=== PATIENT | male | born 1965 | race Caucasian/White ===

== ENCOUNTER 2021-09-29 12:52 | Outpatient (REF) | payer BC, SELFPAY ==
[2021-09-30 09:09] LABS: Anion Gap 9.6 mmol/L (3-11); BUN 14 mg/dL (7-18); CO2 25.4 mmol/L (21.0-32.0); Calcium 9.2 mg/dL (8.5-10.1); Chloride 105 mmol/L (98-107); Glucose 96 mg/dL (74-106); Potassium 4.6 mmol/L (3.5-5.1); Sodium 140 mmol/L (136-145)
== END 2021-09-29 12:53 | disposition home or self-care (01) ==
LOC: NCHCN 12:52
PROVIDERS: PCP Specialist/Technologist Athletic Trainer; Visit Provider Nurse Practitioner Family
DX: I10 Essential (primary) hypertension (principal)
CPT/HCPCS: 80048

== ENCOUNTER 2022-05-03 15:24 | Outpatient (REF) | payer BC, SELFPAY ==
[2022-05-03 15:28] LABS: Anion Gap 12.9 mmol/L (3-11); BUN 21 mg/dL (7-18); CO2 27.1 mmol/L (21.0-32.0); CREATININE 1.2 mg/dL (0.70-1.30); Calcium 8.9 mg/dL (8.5-10.1); Calculated LDL 100 mg/dL (<100); Chloride 97 mmol/L (98-107); Cholesterol 170 mg/dL (<200); Glucose 120 mg/dL (74-106); HDL Cholesterol 55 mg/dL (40-60); Potassium 3.1 mmol/L (3.5-5.1); Sodium 137 mmol/L (136-145); Triglyceride 77 mg/dL (<150)
== END 2022-05-03 15:25 | disposition home or self-care (01) ==
LOC: NCHCN 15:24
PROVIDERS: PCP Specialist/Technologist Athletic Trainer; Visit Provider Nurse Practitioner Family
DX: Z00.00 Encounter for general adult medical examination without abnormal findings (principal); I10 Essential (primary) hypertension
CPT/HCPCS: 80048; 80061

== ENCOUNTER 2022-05-31 15:55 | Outpatient (REF) | payer BC, SELFPAY ==
[2022-05-31 15:45] LABS: Anion Gap 11.2 mmol/L (3-11); BUN 20 mg/dL (7-18); CO2 29.8 mmol/L (21.0-32.0); Calcium 8.9 mg/dL (8.5-10.1); Chloride 97 mmol/L (98-107); Glucose 101 mg/dL (74-106); Potassium 3.2 mmol/L (3.5-5.1); Sodium 138 mmol/L (136-145)
== END 2022-05-31 15:56 | disposition home or self-care (01) ==
LOC: NCHCN 15:55
PROVIDERS: PCP Specialist/Technologist Athletic Trainer; Visit Provider Nurse Practitioner Family
DX: I10 Essential (primary) hypertension (principal)
CPT/HCPCS: 80048

== ENCOUNTER 2022-06-30 08:58 | Outpatient (REF) | payer BC, SELFPAY ==
[2022-06-30 16:19] LABS: Anion Gap 10.1 mmol/L (3-11); BUN 15 mg/dL (7-18); CO2 27.9 mmol/L (21.0-32.0); Calcium 8.6 mg/dL (8.5-10.1); Chloride 100 mmol/L (98-107); Glucose 104 mg/dL (74-106); Potassium 3.9 mmol/L (3.5-5.1); Sodium 138 mmol/L (136-145)
== END 2022-06-30 08:59 | disposition home or self-care (01) ==
LOC: NCHCN 08:58
PROVIDERS: PCP Specialist/Technologist Athletic Trainer; Visit Provider Nurse Practitioner Family
DX: I10 Essential (primary) hypertension (principal); E87.6 Hypokalemia
CPT/HCPCS: 80048

== ENCOUNTER 2022-09-22 14:39 | Outpatient (REF) | payer BC, SELFPAY ==
[2022-09-22 16:10] LABS: Anion Gap 7.1 mmol/L (3-11); BUN 17 mg/dL (7-18); CO2 29.9 mmol/L (21.0-32.0); Calcium 9.8 mg/dL (8.5-10.1); Chloride 100 mmol/L (98-107); Estimated GFR 88.88 (mL/min/1.73m2); Glucose 91 mg/dL (74-106); Potassium 3.6 mmol/L (3.5-5.1); Sodium 137 mmol/L (136-145)
== END 2022-09-22 14:40 | disposition home or self-care (01) ==
LOC: NCHCN 14:39
PROVIDERS: PCP Specialist/Technologist Athletic Trainer; Visit Provider Nurse Practitioner Family
DX: I10 Essential (primary) hypertension (principal); E87.6 Hypokalemia
CPT/HCPCS: 80048

== ENCOUNTER 2023-04-06 12:57 | Outpatient (REF) | payer BC, SELFPAY ==
[2023-04-06 16:11] LABS: ALT 44 U/L (16-63); AST 34 U/L (15-37); Albumin 4.1 g/dL (3.4-5.0); Alkaline Phosphatase 57 U/L (46-116); Anion Gap 8.9 mmol/L (3-11); BUN 13 mg/dL (7-18); CO2 29.1 mmol/L (21.0-32.0); Calcium 9.1 mg/dL (8.5-10.1); Chloride 99 mmol/L (98-107); Estimated GFR 88.88 (mL/min/1.73m2); Glucose 101 mg/dL (74-106); Potassium 3.5 mmol/L (3.5-5.1); Sodium 137 mmol/L (136-145); Total Protein 8.1 g/dL (6.4-8.2)
== END 2023-04-06 12:58 | disposition home or self-care (01) ==
LOC: NCHCN 12:57
PROVIDERS: PCP Specialist/Technologist Athletic Trainer; Visit Provider Nurse Practitioner Family
DX: I10 Essential (primary) hypertension (principal)
CPT/HCPCS: 80053

== ENCOUNTER 2024-08-06 17:44 | Outpatient (REF) | payer BC, SELFPAY ==
[2024-08-06 16:29] LABS: Abs Immature Grans 0.02 10^3/uL (0.0-0.06); Absolute Basophil Count 0.06 10^3/uL (0.0-0.2); Absolute Eosinophil Count 0.14 10^3/uL (0.0-0.7); Absolute Lymphocyte Count 1.45 10^3/uL (1.2-3.4); Absolute Monocyte Count 0.57 10^3/uL (0.1-0.8); Absolute Neutrophil Count 3.63 10^3/uL (1.2-6.7); Eosinophils % 2.4 %; HCT 43.7 % (40.0-50.0); HGB 15.5 g/dL (13.5-17.5); Immature Grans % 0.3 %; Lymphocytes % 24.7 %; MCH 30.4 pg (27.0-33.0); MCHC 35.5 % (32.0-36.0); MCV 86 fL (80-95); MPV 11.1 fL (8.0-11.0); Monocytes % 9.7 %; Neutrophils % 61.9 %; Platelet Count 267 10^3/uL (130-400); RDW 11.7 % (11.8-14.1); RDW-SD 37.1 fL; WBC 5.87 10^3/uL (4.4-10.8)
[2024-08-06 16:48] LABS: C-Reactive Protein 1.73 mg/dL (<or=0.5)
== END 2024-08-06 17:45 | disposition home or self-care (01) ==
LOC: NCHCN 17:44
PROVIDERS: PCP Specialist/Technologist Athletic Trainer; Visit Provider Nurse Practitioner Family
DX: K92.1 Melena (principal)
CPT/HCPCS: 85025; 86140

== ENCOUNTER 2024-09-29 06:18 | Day surgery (SDC) | payer BC, SELFPAY ==
--- NOTE | 2024-09-28 07:29 | PDOC.DSDIS_ITS ---
Date of service: 09/29/24 Time of Service: 07:40 Discharge Plan Disposition Patient Disposition: Home Condition: Good Discharge Details Reason For Visit: screening colonoscopy Attending Provider: Evens Mooney Primary Care Provider: Neha Gallagher Home Meds and New Rx's Prescriptions: Continued potassium chloride 20 mEq tablet extended release 20 meq PO DAILY chlorthalidone 50 mg tablet 50 mg PO DAILY Discontinued bisacodyl [Dulcolax (bisacodyl)] 5 mg tablet,delayed release (DR/EC) 5 mg PO ONCE Qty: 4 0RF Rx Instructions: Take per colonoscopy instructions provided by ordering providers office polyethylene glycol 3350 17 gram/dose powder 17 g PO ONCE Qty: 238 0RF Rx Instructions: Take per colonoscopy instructions provided by ordering providers office Discharge Instructions Additional Instructions: Constantine, was pleasure meeting you today, and I hope you are comfortable during the procedure. Your prep was outstanding, and I could see everything fine. There are no tumors, polyps, or anything at all to worry about with regards to today's colonoscopy. With regards to future screenings, I would encourage you to di scuss this with your primary care physician. Certainly, patients with a first- degree family relative (that his mother father sister brother or child) who carries a history of colon cancer should undergo screening colonoscopy every 5 years. It is a little less clear for patients with extended family members who have this diagnosis. If the experiences tolerable for you, and your healthcare provider will cover every 5 years, I think that is a very reasonable plan. Alternatively, if you wanted to shift to something closer to 8 to 10 years, that would probably be reasonable from a medical standpoint. if you have any questions at all, please do not hesitate to call or ask at any time. 1. If tolerated, consume a soft, low fiber diet for 1-2 days. 2. Do not drive, drink alcohol, operate machinery, make critical decisions, or do activities that require coordination or balance for 24 hours. 3. Because air was put into your colon during the procedure, expelling air from your rectum (passing gas or farting) is normal. 4. You may not have a bowel movement for 1-3 days because of the colonoscopy prep. This is normal. 5. Go directly to the emergency room if you notice any of the following: Develop chills (warm to touch), or if you have a thermometer and your temperature is above 101 Difficulty breathing or difficultly swallowing Persistent vomiting Severe abdominal pain, other than gas cramps Severe chest pain Black, tarry stools Any bleeding ? exceeding one tablespoon 6. Call your physician if the site where your intravenous was started becomes red, swollen, painful, and warm to touch. 7. Your physician has reviewed your pre-procedure medications. Please continue to take those medications as previously ordered. You will be given specific information/education regarding any changes to your medications before leaving. Activity:: Activity as Tolerated Diet:: As Tolerated Discharge Orders Discharge Orders: Discharge Order (Routine); Ordered 09/28/24 Ordered By: Evens Mooney DS: Diagnosis Discharge Diagnosis (1) Encounter for screening colonoscopy: Status: Acute Asessment and Plan: Negative screening colonoscopy
--- NOTE | 2024-09-28 07:31 | COLE_ITS ---
Date of service: 09/29/24 Time of Service: 07:42 Colonoscopy Report Date of procedure: 09/29/24 Pre-op diagnosis general: screening colonoscopy Post-op diagnosis procedure note: other (Negative screening colonoscopy) Procedure: colonoscopy Surgeon: Evens Mooney Anesthesia Type: General:No Airway Estimated blood loss (mL): 0 Pathology: none sent Complications: None Disposition: same day Indications: Oral is a 59 year old man with a fmaily history of colon cancer who needs his next screening colonoscopy Prep: Miralax/Dulcolax Procedure Start Time: 07:19 Procedure End Time: 07:35 Retraction Time: 9 Findings: Negative screening colonoscopy Procedure Description: After the induction of anesthesia, and with the patient in left lateral decubitus position, I began by performing an external anorectal exam.? Perineum and skin were normal, as was the anal verge.? There was no evidence of external hemorrhoids.? Next, I performed a digital rectal exam.? I did not appreciate any abnormal findings.? Next, I advanced a colonoscope into the rectal vault.? I performed retroflexion.? This appeared normal.? Using insufflation, I then advanced the colonoscope beyond the rectal folds and into the sigmoid colon before advancing towards the cecum.? The quality of the prep was outstanding.? The scope was noted to be in the cecum by identification of the ileocecal valve and appendiceal orifice.? I then began withdrawing the colonoscope using repeated irrigation as necessary for full evaluation of the colonic mucosa. ?Once the scope was withdrawn to the level of the rectum, great care was taken to examine portions of the rectal folds.? I did not see any signs of tumors, polyps, or any other pathology. Finally, the scope was withdrawn and the patient was brought to the same-day surgery recovery unit as the anesthetic wore off. ?The findings and instructions were shared with the patient prior to discharge. [place] Bowel Prep [place] Bowel Prep Right Colon: 3 Left Colon: 3 Transverse Colon: 3 Total Score: 9
--- NOTE | 2024-09-29 06:25 | W.ANESPRE ---
General Info Date of Service Date Performed: 09/29/24 Height: 6 ft 3 in Weight: 117.934 kg Body Mass Index (BMI): 32.5 Surgical Procedure: Operation Date: 09/29/24 07:35 Proposed Procedure Side Surgeon p Colonoscopy Evens Mooney MD Meds Allergies and Home Medications Allergies Allergy/AdvReac Type Severity Reaction Status Date / Time No Known Allergies Allergy Verified 09/29/24 06:30 Home Medication ?Medication ?Instructions ?Recorded chlorthalidone 50 mg tablet 50 mg PO DAILY 08/28/24 potassium chloride 20 mEq 20 meq PO DAILY 08/28/24 tablet,extended release Current Visit Medications: Current Medications Generic Name Dose Route Start Last Admin Trade Name Freq PRN Reason Stop Dose Admin Ringer's Solution 1,000 mls @ 80 mls/hr 09/29/24 06:00 IV 10/26/24 23:59 INFUSION NALLELY Ringer's Solution 500 mls @ 80 mls/hr 09/29/24 06:00 IV 10/26/24 23:59 INFUSION NALLELY IV Miscellaneous Supplies 1 each 09/29/24 06:00 Iv Access IV 10/26/24 23:59 DIRECTED NALLELY Ondansetron HCl 4 mg 09/28/24 07:31 Ondansetron 4 Mg/2 Ml Vial IVP 10/28/24 07:30 Q4H PRN PRN Nausea / Vomiting Sodium Chloride 0 ml 09/29/24 06:00 Normal Saline Flush 10 Ml Syr IV 10/26/24 23:59 PRN PRN Sodium Chloride 0 ml 09/29/24 06:00 Normal Saline 10 Ml Vial IJ 10/26/24 23:59 DIRECTED PRN Sterile Water 0 ml 09/29/24 06:00 Water,Injection,Sterile 10 Ml Vial IJ 10/26/24 23:59 DIRECTED PRN PFSH Active Problems Active Problems: Problem Status Onset Code Encounter for screening colonoscopy Acute Z12.11 Medical History Medical History Dysphagia Snoring Essential hypertension Hypokalemia Basal cell carcinoma Weight gain Eustachian tube dysfunction Surgical History Surgical History Colonoscopy - MAC (10/03/17) Tobacco Smoking/Tobacco Use Status: Never Alcohol Alcohol Intake: current Alcohol intake frequency: a few times a week Substance Use Substance use: Never Substance use type: does not use Vital Signs and Lab Results Vital Signs Most Recent Vital Signs in EMR: Temp Pulse Resp BP Pulse Ox 36.7 C 57 L 16 139/88 97 09/29/24 06:44 09/29/24 06:44 09/29/24 06:44 09/29/24 06:44 09/29/24 06:44 Lab Results Blood Type / Crossmatch: No Data to Display Complete Blood Count: No Data to Display Complete Metabolic Panel: No Data to Display Liver Function Panel: No Data to Display Coagulation Panel: No Data to Display Cardiac Panel: No Data to Display Arterial Blood Gas: No Data to Display Venous Blood Gas: No Data to Display Pancreas Panel: No Data to Display Thyroid Panel: No Data to Display Infectious Disease: No Data to Display Blood Cultures: No Data to Display Toxicology Panel: No Data to Display Anesthesia Assessment and Plan Anesthesia History Personal History: No History of Anesthesia Complications Family History: No Family History of Anesthesia Complications Exercise Tolerance Exercise Tolerance: Metabolic Equivalents>4 Cardiac & Pulmonary Exam Cardiac Exam: Normal S1/S2 Heart Sounds Pulmonary Exam: Clear Bilateral Breath Sounds Implantable Cardiac Device Does patient have a Pacemaker or an ICD?: No Airway Exam Known Difficult Airway: No Mallampati Class: 4 Mouth Opening: Narrow (< 3cm) Thyromental Distance: Greater than 3 cm Neck Range of Motion: Full ROM Neck Circumference: Normal Teeth Condition: Normal Dentition ASA Classification ASA Score: ASA 2 Emergency Case?: No NPO Status NPO Status: NPO Clears >2 hours, Solids >8 hours Anesthesia Plan Resuscitation Status: Full Code Anesthesia Technique: General Anesthesia Airway Planned: Natural Airway Monitors Used: Standard Monitors Preoperative Comments:: 59 yo male for colo. Sig PMHx: HTN (chlorthalidone. well controlled.), SVEN, never smoker, occ EtOH. Previous Anes: - colo, fent/midaz, prop, natural airway, no issues.
[2024-09-29 06:44] VITALS: BP 139/88; PULSE 57; RESP 16; TEMP 36.7; O2SAT 97
[2024-09-29] MEDS: Normal Saline Flush 10 ML SYR IV (07:00)
[2024-09-29 07:05] VITALS: BMI 32.5
[2024-09-29 07:41] VITALS: BP 120/72; PULSE 66; RESP 18; TEMP 36.3; O2SAT 98
--- NOTE | 2024-09-29 07:47 | W.ANESPOSTOP ---
Postoperative Evaluation Date, Time and Location Date Performed: 09/29/24 Time Performed: 07:47 Patient Location: Day Surgery Unit Vital Signs Most Recent Imported Vital Signs: Most Recent Vital Signs Temp Pulse Resp BP Pulse Ox 36.3 C L 66 18 120/72 98 09/29/24 07:41 09/29/24 07:41 09/29/24 07:41 09/29/24 07:41 09/29/24 07:41 Pain Score Most Recent Pain Score: Most Recent Pain Score Pain Level 0 09/29/24 07:41 Assessment Mental Status: Awake (Alert & Oriented to Patient Baseline) Airway and Respiratory Function: Patent airway with normal (patient baseline) respiratory exam Cardiovascular Function: Hemodynamically Stable Hydration Status: Adequately Hydrated Nausea & Vomiting: No Nausea or Vomiting Pain: Pt. Denies Any Pain Peripheral Nerve Block: Patient did not receive a nerve block
[2024-09-29 08:08] VITALS: BP 126/81; PULSE 56; RESP 18; TEMP 36.4; O2SAT 97
== END 2024-09-29 08:34 | disposition home or self-care (01) ==
LOC: SUR 06:18
PROVIDERS: PCP Nurse Practitioner Family; Visit Provider Surgery
PROC: 0DJD8ZZ Inspection of Lower Intestinal Tract, Via Natural or Artificial Opening Endoscopic (ICD-10-PCS; CPT 45378; principal; 2024-09-29 07:30)
DX: Z12.11 Encounter for screening for malignant neoplasm of colon (principal); Z80.0 Family history of malignant neoplasm of digestive organs; I10 Essential (primary) hypertension
CPT/HCPCS: 45378; J2704

== ENCOUNTER 2024-11-21 10:27 | Outpatient (REF) | payer BC, SELFPAY ==
[2024-11-21 15:55] LABS: Anion Gap 7.7 mmol/L (3-11); BUN 17 mg/dL (7-18); CO2 30.3 mmol/L (21.0-32.0); CREATININE 0.9 mg/dL (0.70-1.30); Calcium 9.7 mg/dL (8.5-10.1); Chloride 101 mmol/L (98-107); Estimated GFR 99.62 (mL/min/1.73m2); Glucose 109 mg/dL (74-106); Potassium 3.5 mmol/L (3.5-5.1); Sodium 139 mmol/L (136-145)
[2024-11-24 10:32] LABS: HIV-1/2 Ag & Ab Screen Negative (Negative)
[2024-11-24 11:36] LABS: Hepatitis C Ab w Rflx HCV PCR Negative (Negative)
== END 2024-11-21 10:28 | disposition home or self-care (01) ==
LOC: NCHCN 10:27
PROVIDERS: PCP Nurse Practitioner Family; Visit Provider Nurse Practitioner Family
DX: I10 Essential (primary) hypertension (principal); Z00.00 Encounter for general adult medical examination without abnormal findings
CPT/HCPCS: 80048; 86803; 87389